=== PATIENT | male | born 1970 | race Caucasian/White ===

== ENCOUNTER 2023-06-25 01:02 | Emergency (ER) | payer SELFPAY ==
[~2023-06-25] VITALS: Ht 165.1 cm; Wt 100.0 kg
[2023-06-25] MEDS ORDERED: KETOROLAC 15MG/ML VIAL IM ONE (02:00)
[2023-06-25] MEDS ORDERED: ONDANSETRON HCL 4MG TABLET PO ONE (02:00)
[2023-06-25 02:24] VITALS: O2SAT 97
[2023-06-25 03:27] VITALS: BP 147/90; PULSE 70; RESP 18; TEMP 97.6
== END 2023-06-25 03:29 | disposition home or self-care (01) ==
LOC: ER 01:02
DX: S00.93XA Contusion of unspecified part of head, initial encounter (principal); X58.XXXA Exposure to other specified factors, initial encounter; Y93.89 Activity, other specified; Y92.89 Other specified places as the place of occurrence of the external cause; Y99.8 Other external cause status
CPT/HCPCS: 96372; 99283; Q0162; J1885; Z7610

== ENCOUNTER 2023-07-04 19:17 | Emergency (ER) | payer SELFPAY ==
[~2023-07-04] VITALS: Ht 165.1 cm; Wt 99.7 kg
[2023-07-04 19:35] VITALS: BP 118/67; PULSE 82; RESP 16; TEMP 98.5; O2SAT 98
[2023-07-04] MEDS ORDERED: IBUP-2030 MT (21:32)
== END 2023-07-04 22:33 | disposition home or self-care (01) ==
LOC: ER 19:17
DX: R51.9 Headache, unspecified (principal)
CPT/HCPCS: 99282